=== PATIENT | female | born 1990 | race Caucasian/White ===

== ENCOUNTER 2025-04-27 08:20 | Day surgery (SDC) | payer MEDICAID, SELFPAY ==
[2025-04-26 09:43] VITALS: BMI 33.1
[2025-04-26 10:23] LABS: Basophils % (Auto) 1 % (0-2.5); Eosinophils # (Auto) 0.3 Thou/mm3 (0.0-0.5); Eosinophils % (Auto) 6 % (0-10); Hematocrit 38.7 % (36.0-46.0); Hemoglobin 13.8 g/dL (12.0-16.0); Immature Granulocytes % (Auto) 0 % (0-0); Lymphocytes % (Auto) 35 % (10-50); Mean Corpuscular HGB Conc 35.7 g/dl (31.0-37.0); Mean Corpuscular Hemoglobin 31.9 pg (25.0-35.0); Mean Corpuscular Volume 89 fL (80-100); Monocytes # (Auto) 0.5 Thou/mm3 (0.0-0.8); Monocytes % (Auto) 8 % (0-12); Neutrophils # (Auto) 2.9 Thou/mm3 (1.8-7.7); Neutrophils % (Auto) 51 % (37-80); Nucleated Red Blood Cell % 0 /100 WBC (0); Platelet Count 279 Thou/mm3 (140-440); RDW Standard Deviation 40.6 fL (36.4-46.3); Red Blood Count 4.33 Miln/mm3 (4.00-5.20); White Blood Count 5.7 Thou/mm3 (3.6-11.0)
[2025-04-26 10:48] LABS: HCG,Qualitative Serum Negative
[2025-04-26 11:43] LABS: HIV (1&2) Antibody Rapid Non-Reactive
[2025-04-26 12:04] LABS: Hepatitis A Antibody IgM Non Reactive (Non React); Hepatitis B Core Antibody IgM Non Reactive (Non React); Hepatitis B Surface Antigen Non Reactive (Non React); Hepatitis C Antibody Non Reactive (Non React)
[2025-04-27] VITALS (7 sets, daily range): BP systolic 110–140; BP diastolic 59–93; PULSE 65–89; RESP 12–18; TEMP 36.3–36.7; O2SAT 96–100; BMI 33.1
[2025-04-27] MEDS: RINGERS LACTATED 1000 ML 1,000 ML 20 ML IV (09:15)
--- NOTE | 2025-04-27 11:43 | SUR.PHASEI ---
Pt. arrived to receovery via gurney, eyes closed, responds to verbal commands, VSS, no c/o pain or nausea at this time, lung sounds clear, pt. is coughing intermittently, pt. receiving 3 liters 02 via NC, assessed barbra-area, no active bleeding noted. Report received from Mikki MAGAÑA and Dr. Lipscomb.
--- NOTE | 2025-04-27 11:50 | SUR.PHASEI ---
1150: Recieved report from Mary RN, pt. AAOx4, vitals stable, breathing unlabored, no complaint of pain or nausea, no dressing in place.
--- NOTE | 2025-04-27 11:50 | SUR.PHASEI ---
Gave report on pt. s/p surgery to Alicia MAGAÑA.
--- NOTE | 2025-04-27 11:51 | PD.GYNPROC ---
Operative Note - SENIOR PRODUCTION MANAGER Procedure Date of procedure: 04/27/25 Procedure Performed: Hysteroscopic guided IUD removal Indication: Impacted IUD Unsuccessful attempt at IUD retrieval in outpatient settings Pre-Op diagnosis: Same Post-Op diagnosis: Same False passage Anesthesia type: General Procedure description: The patient was seen prior to surgery. The potential benefits and risks of the procedure, the likelihood of success, and the problems related to recuperation have been discussed with patient who agrees to proceed. The possible results of nontreatment and significant alternatives to the proposed procedure have also been explained, along with the risks and benefits of the alternatives. Risks and benefits of chosen anesthetic/sedation and possible use of blood/blood products (if appropriate) were discussed.The patient was identified as Rena Freeman and the procedure verified. A time out was held reviewing the patient identifiers, procedure planned and allergies. At this point the procedure was begun. The patient was positioned and prepped in routine fashion in the dorsal lithotomy position using yellowfin stirups. On examination under anesthesia,the uterus was retroverted to a normal size. Bladder was drained by catheter. A weighted speculum was then placed into the patient's posterior vagina. A diane was used to expose the anterior lip of the cervix which was then grasped by a single tooth tenaculum.The cervical canal was extremely tortuous and in an attempt to dilate the cervical canal a false passage was noted on insertion of hysteroscope. At this point the camera was slowly withdrawn until the entrance to the false passage was visualized on navigating the camera cephalad the true internal os was seen I decided to remove the posterior speculum at this point an extreme anteversion to hold the hysteroscope could successfully navigate the hysteroscopy through the true cervical canal and entrance to cervix was then very easily dilated to a size 6 Hegar dilator. The hysteroscope was then placed under direct visualization. Warm lactated Ringer's was used as a distention medium. The patient's uterus was found to have IUD wehich was removed usinga grasper . There was minimal bleeding noted and tenaculum was removed. Hemostasis was acheived with a ringed forcep on anterior cervix. Estimated blood loss (ml): 5 Surgical staff Operation Date: 04/27/25 10:30 Case Staff Anesthesiologist: Esteban Lipscomb Diagnosis Problem List Completed Was Problem List Reviewed/Reconciled?: Yes
[2025-04-27] MEDS: fentaNYL CIT INJ 50 mCg/ML AMP 2ML 25 MCG IVP (12:02)
--- NOTE | 2025-04-27 12:36 | SUR.PHASEII ---
1236: Pt. AAOx4, vitals stable, breathing unlabored, no complaint of pain or nausea, no dressing in place, no active bleed noted, pt. tolerated sips of water well, pt. ambulated to wheelchair with steady gait and no assist, no complications. Gave discharge instructions to the pt. and her ride, both verbalized understanding and had no further questions. Pt. left with all personal belongings.
== END 2025-04-27 12:36 | disposition home or self-care (01) ==
PROVIDERS: PCP Family Medicine; Referring Provider Student in an Organized Health Care Education/Training Program; Visit Provider Student in an Organized Health Care Education/Training Program
PROC: 0UJD8ZZ Inspection of Uterus and Cervix, Via Natural or Artificial Opening Endoscopic (ICD-10-PCS; CPT 58555; principal; 2025-04-27 10:15)
PROC: (CPT 58301; 2025-04-27 10:15)
DX: T83.39XA Other mechanical complication of intrauterine contraceptive device, initial encounter (principal)
CPT/HCPCS: 58562; 36415; 80074; 84703; 85025; 86703; 86850; 86900; 86901; A4217; A4649; J1100; J1885; J2250; J2405; J2704; J3010; J7120

== ENCOUNTER 2025-09-24 17:50 | Emergency (ER) | payer MEDICAID, SELFPAY ==
[2025-09-24 17:51] VITALS: PULSE 78; RESP 24; O2SAT 100
--- NOTE | 2025-09-24 17:51 | XR_ITS ---
Examination: CT brain head without contrast. 2-D sagittal coronal reconstructions Date and time of exam: September 24, 2025, 1855 hours INDICATIONS: Onset severe headache today CTDI: vol (mGy): 52.4 DLP: (mGycm): 986 Technique: Multiple CT axial sections of the brain have been obtained, 5 mm slice thickness. Contrast has not been administered. 2-D sagittal, coronal reconstructions have been obtained Low dose protocols were performed. One or more of the following dose reduction techniques were used; automated exposure control, adjustment of the mA and/or KV according to patient size, use of iterative reconstruction technique. Findings: No significant ventricular enlargement. Intra-axial or extra-axial hemorrhage density is not seen. No mass effect or midline shift Basal cisterns are not remarkable. Fourth ventricle is midline. Cranial vault intact. Significant chronic ethmoid maxillary antral sinusitis Impression: Negative for acute hemorrhage, mass effect or midline shift Advise clinical correlation and follow-up accordingly
--- NOTE | 2025-09-24 17:52 | PD.EDADULT ---
ED General RME/HPI General Chief complaint: Headache Stated complaint: HEADACHE Time Seen by Provider: 09/24/25 17:50 Arrival date/time: 09/24/25 17:50 CC: Headache HPI approximate 20 minutes ago abrupt onset of a frontal headache after vomiting x 1. Patient has no prior history of similar events. Patient is on Suboxone 7.5 mg in the morning in the evening has been free of street drugs and alcohol for 1.5 years also on antidepressant depressants. EMS reports stable vital signs. Patient thinks her last menstrual cycle was August 13. Patient is anxious and tearful pain is rated as a 9 on a 10 scale. Related Data Home Medications ?Medication ?Instructions ?Recorded ?Confirmed buprenorphine 4 mg-naloxone 1 mg 1 film buccal QDAY 04/26/25 04/26/25 sublingual film (Suboxone) escitalopram oxalate 20 mg tablet 20 mg PO QDAY 04/26/25 04/26/25 (Lexapro) linaclotide 72 mcg capsule 72 mcg PO QAM 04/26/25 04/26/25 (Linzess) quetiapine 25 mg tablet (Seroquel) 25 mg PO HS 04/26/25 04/26/25 Allergies Allergy/AdvReac Type Severity Reaction Status Date / Time No Known Allergies Allergy Verified 09/24/25 17:56 Review of Systems Review of Systems Narrative Review of Systems: GEN: No fever, no chills, no weight loss EYES: No discharge, no visual changes, no pain HEENT: No ear pain, no congestion, no sore throat PULM: No shortness of breath, no cough, no congestion CV: No chest pain, no dyspnea on exertion, no palpitations GI: + nausea, no vomiting, no diarrhea, no pain, no constipation : No frequency, no urgency, no dysuria MUSC/SKEL: No joint pain, no back pain SKIN: No rash PSYCH: No hallucinations, no depression HEME/LYMPH: No easy bleeding or bruising tendencies NEURO: No weakness, + headache Past Medical History Past Medical History NEUROLOGIC: Negative Neurological Disorders or Seizures CARDIAC: Negative Cardiac Disorders or Congestive Heart Failure RESPIRATORY: Positive Pulmonary Embolism (2015); Negative Chronic Obstructive Pulmonary Disease (COPD) GASTROINTESTINAL: Negative Gastrointestinal Disorders or Hepatitis GENITOURINARY: Negative Genitourinary Disorders or Renal Disease REPRODUCTIVE: Positive Previous Pregnancies MUSCULOSKELETAL: Negative Musculoskeletal Disorders ENDOCRINE: Negative Endocrine Disorders, Diabetes Mellitus Type 1 or Diabetes Mellitus Type 2 HEMATOLOGIC: Negative Blood Disorders PSYCHO/SOCIAL: Positive Recreational Drug Use, Depression and Anxiety OTHER HISTORY: Positive Hospitalization (PE); Negative Autoimmune Disease, Shingles, Blood Transfusions, Blood Transfusion Reaction, Anesthesia Reactions or Cancer Family History FAMILY HISTORY: Negative Family Psychiatric Problems, Family Respiratory Disorders, Family Cardiac Disorders, Family Gastrointestinal Problems, Family Cancer, Family Surgery or Family Anesthesia Reaction Surgical History SURGICAL: Positive Section (x5) Social History SMOKING STATUS: Heavy (> 1 pack/day) ED Exam Narrative Physical exam: [General: In moderate discomfort but not in any acute distress Head normocephalic HEENT: Pupils are PERRLA EOMs are intact mouth pink moist membranes uvula is midline swallow symmetrical phonation is normal. All other subsystems of HEENT are within acceptable limits Neck is supple nontender Chest equal chest rise nontender to palpation Respiratory: Clear to auscultation no wheezes crackles or rubs CV: Rate rhythm is regular no murmurs rubs or clicks Abdomen is soft nontender no masses positive bowel sounds all 4 quadrants Back: No CVA tenderness no spinous process tenderness from cervical spine thoracic and lumbar spine Skin: Intact no petechiae rash induration ulceration or crepitus Extremities: Moving all extremity against resistance cap refill less than 2 seconds neurosensory intact Neuro: Awake alert oriented x3 Glascow coma 15 no focal deficits] cranial nerves II through XII are grossly intact. Course Course Course Narrative: At 2100 I was notified that the patient now has a light sensitivity noise sensitivity along with the nausea. CT of the head is negative patient was given migraine cocktail. Reassessment at 2129, the patient's headache is resolved she is feeling much better and wants to go home I am comfortable discharging her home at this time. Quality Measures none Orders Category Date Time Status Insert IV NOW Care 09/24/25 19:[address] head/brain wo con Stat Exams 09/24/25 17:51 Completed Drug Screen,Urine Stat Lab 09/24/25 20:40 Received HCG Qualitative,Urine Stat Lab 09/24/25 20:40 Completed Urinalysis Stat Lab 09/24/25 20:40 Completed DiphenhydrAMINE INJ [Benadryl Inj] Med 09/24/25 20:29 Discontinued 25 mg IVP X1 ONE Ketorolac Inj [Toradol Inj] Med 09/24/25 20:29 Discontinued 30 mg IVP X1 ONE Ondansetron Odt [Zofran Odt] Med 09/24/25 17:51 Discontinued 4 mg PO X1 ONE Prochlorperazine Inj [Compazine Inj] Med 09/24/25 20:29 Discontinued 10 mg IV X1 ONE Sodium Chloride 0.9% 1000 ml [Ns] 1,000 ml Med 09/24/25 20:29 Active IV 999 mls/hr Vital Signs Vital signs: Vital Signs Temperature 97.7 F 09/24/25 18:05 Pulse Rate 56 L 09/24/25 18:05 Respiratory Rate 18 09/24/25 18:05 Blood Pressure 123/75 09/24/25 18:05 Pulse Oximetry (%) 98 09/24/25 18:05 Oxygen Delivery Method Room Air 09/24/25 18:05 Discharge Plan Plan Patient Disposition: HOME (Self Care) Patient condition on transfer: Stable Prescriptions/Referrals Prescriptions/Med Rec: No Action escitalopram oxalate [Lexapro] 20 mg tablet 20 mg PO QDAY Linzess 72 mcg capsule 72 mcg PO QAM quetiapine [Seroquel] 25 mg tablet 25 mg PO HS buprenorphine-naloxone [Suboxone] 4-1 mg film 1 film buccal QDAY Rx Instructions: place 1 strip/tab under (each) side of tongue Referrals: Misael Jackson MD [Physician, Family Practice] - In 1 week No Primary/Family,Physician [Primary Care Provider] - In 1 week Problem List Clinical Impression: Migraine Patient/Caregiver Discharge Instructions Education Materials: ED Headache, Migraine, Classic Print Language: Finnish Stand Alone Forms: Soni Award Info., Work/School Release, Patient Portal Info Letter PA/[employer] COMMANDING OFFICER Supervising Physician PA/[employer] OFFICER Supervising Physician: William Mendoza ENP [facility] Clinical Information Provided by: patient and EMS Medical Records reviewed [facility] and EMS Meds/Rx considered, not ordered None Labs/Rad/Tests considered, not ordered None Chronic Illness/Social Conditions which may negatively complicate care or outcome(s)-explain: Mental health EKG EKG not done Labs Labs: interpreted by me Imaging Imaging interpretation: interpreted by me Medication Administration(s) Medication Administration History Sodium Chloride (Ns) 1,000 mls @ 999 mls/hr IV .Q1H1M ONE Stop: 09/24/25 21:29 Last Admin: 09/24/25 20:50 Dose: 999 mls/hr Documented By: JAYSON Discontinued Medications Diphenhydramine HCl (Diphenhydramine Inj 50 Mg/Ml Vial) 25 mg IVP X1 ONE Stop: 09/24/25 20:30 Last Admin: 09/24/25 20:50 Dose: 25 mg Documented By: JAYSON Ketorolac Tromethamine (Ketorolac Inj 30 Mg/Ml Vial) 30 mg IVP X1 ONE Stop: 09/24/25 20:30 Last Admin: 09/24/25 21:01 Dose: 30 mg Documented By: JAYSON Ondansetron HCl (Ondansetron Odt 4 Mg Tabrap) 4 mg PO X1 ONE; Protocol Stop: 09/24/25 17:52 Last Admin: 09/24/25 20:26 Dose: Not Given Documented By: JAYSON Non-Admin Reason: Patient Refused Prochlorperazine Edisylate (Prochlorperazine Inj 5 Mg/Ml Vial 2 Ml) 10 mg IV X1 ONE; Protocol Stop: 09/24/25 20:30 Last Admin: 09/24/25 20:50 Dose: 10 mg Documented By: JAYSON
[2025-09-24 17:55] VITALS: BMI 35.6
[2025-09-24 18:05] VITALS: BP 123/75; PULSE 56; RESP 18; TEMP 36.5; O2SAT 98
[2025-09-24 19:36] VITALS: BP 98/61; PULSE 57; RESP 20; O2SAT 100
[2025-09-24] MEDS: SODIUM CHLORIDE 0.9% 1000 ML 1,000 ML 999 ML IV (20:50)
[2025-09-24] MEDS: PROCHLORPERAZINE INJ 5 MG/ML VIAL 2 ML 10 MG IV (20:50)
[2025-09-24 20:53] LABS: Collection Type, Urine Clean Catch
[2025-09-24 20:54] LABS: HCG Qualitative,Urine Negative
[2025-09-24 20:57] LABS: Bilirubin,Urine Negative (Negative); Blood,Urine Negative (Negative); Clarity,Urine Clear (Clear/Hazy); Color,Urine Yellow (Lt Yel-Yel); Glucose, Urine Negative (Negative); Ketones,Urine Negative (Negative); Leukocyte Esterase,Urine Negative (Negative); Nitrite,Urine Negative (Negative); PH,Urine 7.5 (5.0-7.0); Protein,Urine Negative (Neg - Trace); RBC,Urine 4 /hpf (0-3); Specific Gravity,Urine 1.019 (1.001-1.035); Squamous Epithelial Cell,Urine 3 /hpf (0-5); Urobilinogen,Urine Negative mg/dL (0.0-1.0); WBC,Urine 1 /hpf (0-5)
[2025-09-24] MEDS: KETOROLAC INJ 30 MG/ML VIAL IVP (21:01)
[2025-09-24 21:19] VITALS: BP 111/61; PULSE 48; RESP 19; O2SAT 100
[2025-09-24 22:06] LABS: Amphetamine/Methamp Scrn,U Negative (Negative); Barbiturate Screen,Urine Negative (Negative); Benzodiazepines Screen,Urine Negative (Negative); Benzoylecgonine Screen, Ur Negative (Negative); Fentanyl Screen,Urine Negative (Negative); Opiate Screen,Urine Negative (Negative); THC Screen,Urine Positive (Negative)
== END 2025-09-24 21:45 | disposition home or self-care (01) ==
PROVIDERS: Registered Nurse General Practice; Emergency Provider Emergency Medicine
DX: G43.109 Migraine with aura, not intractable, without status migrainosus (principal)
CPT/HCPCS: 70450; 80307; 81001; 81025; 96361; 96374; 96375; 99283; J0780; J1200; J1885; J7030